=== PATIENT | male | born 1965 | race African-American/Black ===

== ENCOUNTER 2017-11-07 19:03 | Emergency (ER) | payer MEDICAID ==
[~2017-11-07] VITALS: Ht 175.3 cm; Wt 73.0 kg
[~2017-11-07 19:03] MED LIST: AMLO10TA80 PO; AZITHROMYCIN PO; CHOL500010 PO; EMTR1TAB11 PO; FLUC200T51 PO; HYDR25TA PO; PANT40TA4 PO; PREZCOBIX; SULF-165 PO; TIVICAY
[2017-11-07 19:31] VITALS: BP 95/73
== END 2017-11-07 22:21 | disposition left against medical advice (07) ==
LOC: ER 20:45
DX: Z53.21 Procedure and treatment not carried out due to patient leaving prior to being seen by health care provider (principal)